=== PATIENT | female | born 1980 | race Caucasian/White ===

== ENCOUNTER → 2022-04-21 13:19 | Outpatient (BNVA) | payer MEDICAID, SELFPAY | PROVIDERS: Family Provider Nurse Practitioner Family; PCP Nurse Practitioner Family; Visit Provider Nurse Practitioner Family | DX: N20.0 Calculus of kidney (principal); R39.9 Unspecified symptoms and signs involving the genitourinary system; N15.9 Renal tubulo-interstitial disease, unspecified | CPT/HCPCS: 81000; 87086 ==

== ENCOUNTER → 2023-08-24 10:24 | Outpatient (BNVA) | payer SELFPAY | PROVIDERS: Family Provider Nurse Practitioner Family; Visit Provider Emergency Medicine | DX: R68.89 Other general symptoms and signs (principal) | CPT/HCPCS: 87400; 87426 ==